=== PATIENT | female | born 1975 | race Caucasian/White ===

== ENCOUNTER 2022-04-04 06:58 | Observation (INO) | payer SELFPAY ==
[~2022-04-04] VITALS: Ht 165.1 cm; Wt 121.2 kg
[2022-04-04 07:35] LABS: COLLECTION METHOD CLEAN CATCH
[2022-04-04 07:41] LABS: PH 6.5 (5.0-8.5); URINE APPEARANCE Clear (CLEAR/HAZY); URINE BLOOD 2+ (NEGATIVE); URINE COLOR Yellow (YELLOW); URINE GLUCOSE Negative (NEGATIVE); URINE KETONE Negative (NEGATIVE); URINE NITRATE Negative (NEGATIVE); URINE PROTEIN(semi-quant) Negative (NEGATIVE); URINE UROBILINOGEN 0.2 E.U/dL (0.2-1.0)
[2022-04-04 07:47] LABS: BASO # 0.1 K/mm3 (0.0-0.2); BASO % 0.3 % (0.0-2.0); EOS # 0.2 K/mm3 (0.0-0.7); EOS % 0.9 % (0.0-4.0); GRAN # 13.6 K/mm3 (1.4-6.5); GRAN % 82.8 % (42.2-75.2); HEMATOCRIT 42.1 % (37.0-47.0); HEMOGLOBIN 13.7 g/dl (12.5-16.0); LYMPH # 1.7 K/mm3 (1.2-3.4); LYMPH % 10.2 % (20.0-51.0); MEAN CELL VOLUME 91 fl (80.0-100.0); MEAN CORPUSCULAR HEMOGLOBIN 30 pg (27-31); MEAN CORPUSCULAR HGB CONC 33 g/dl (33.0-37.0); MEAN PLATELET VOLUME 10.3 fl (7.4-10.4); MONO # 0.9 K/mm3 (0.1-0.6); MONO % 5.4 % (1.7-9.3); PLATELET COUNT 239 K/mm3 (130-400); RED BLOOD COUNT 4.62 M/mm3 (4.10-5.30); REDCELL DISTRIBUTION WIDTH-CV 14.5 % (11.5-14.5)
[2022-04-04 07:57] LABS: ALBUMIN 3.5 gm/dL (3.5-5.0); BILIRUBIN,TOTAL 0.4 mg/dL (0.2-1.2); CALCIUM 8.9 mg/dL (8.4-10.2); CREATININE, serum 0.75 mg/dL (0.57-1.11); TOTAL PROTEIN 7.2 gm/dL (6.2-8.1)
[2022-04-04 08:03] LABS: MUCOUS Present (NOT PRESENT); URINE BACTERIA Rare /hpf (NONE SEEN)
[2022-04-04] MEDS ORDERED: ZOLOFT 50MG50 MG PO (09:52)
[2022-04-04] MEDS ORDERED: SPRINTEC 35 MCG1 TAB PO (09:52)
[2022-04-04 12:23] VITALS: BP 103/60; PULSE 72; TEMP 98.3
[2022-04-04] MEDS ORDERED: NORCO 325 MG-51 TAB PO (15:18)
[2022-04-04 16:38] VITALS: BP 134/76; PULSE 94; TEMP 98.3
[2022-04-04 16:53] VITALS: BP 134/76; PULSE 98; TEMP 98.3
[2022-04-04 17:15] VITALS: BP 129/70; PULSE 92
[2022-04-04 17:30] VITALS: BP 129/72; PULSE 87
[2022-04-04 18:10] VITALS: BP 119/74; PULSE 91; TEMP 98.1
== END 2022-04-04 18:20 | disposition home or self-care (01) ==
LOC: COL.ER 06:58 → SURG 09:26
PROVIDERS: Emergency Medicine; ADMIT Surgery
DX: K35.80 Unspecified acute appendicitis (principal); E66.9 Obesity, unspecified
CPT/HCPCS: G0378; J0690; J1100; J1885; J2270; J2405; J2543; J2704; J2765; J3010; J7030; Q9967